=== PATIENT | female | born 1935 | race Caucasian/White ===

== ENCOUNTER 2016-12-08 12:35 | Observation (INO) ==
[~2016-12-08 12:35] MED LIST: DOCUSATE SODIUM 100 MG CAPSULE PO PRN; ONDANSETRON 4 MG/2 ML VIAL IV PRN
[2016-12-08] MEDS ORDERED: cloNIDine 0.1 MG TABLET PO PRN (12:38)
--- NOTE | 2016-12-08 13:22 | Family Practice History&Phys ---
Assessment and Plan (1) Malignant hypertensive urgency Status: Acute Assessment and plan: 12/08/2016: Put the patient in the hospital and will start her on half inch of Nitropaste. We will continue her current blood pressure medicines. 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 May need to consider Trilipix however some of this is associated with her high blood sugars Current Visit: Yes (5) Fatigue Status: Acute Assessment and plan: 12/08/2016: Hopefully she can be turned around with medication adjustments. I do plan on getting an echocardiogram Current Visit: Yes History of Present Illness Chief complaint: Fatigue, atypical chest pain History of present illness: Ms. Ennis is a 81 year old female Well-known to me, very pleasant who does not normally have many complaints, came to my clinic on 11/30/2016 with symptoms of decreased strength, feeling dizzy and having an unsteady gait. It was noted in the room, at that time, that although she was weak there were no cerebellar findings or any other neurologic findings at the time. However, her blood pressure was elevated approximately 200/100 and it had been as high as 250. We increased her bystolic from 5 mg to 10 mg and also her losartan from 50 mg to 100 mg. Today she came in clinic not feeling any better, (having to drive her car to the mailbox to get the mail) and on her blood pressure was still around 200/90. Was also complaining of some pain in her left side of her neck and going down to her elbow although she did not have any parvin chest pain. This was only equivocally reproducible and she does have a history of diabetes and there is a family history of heart disease. I feel like admission was warranted at this time she has not had a significant heart workup (states she has never had a treadmill or a catheterization done). Not had any associated nausea or vomiting nor has she had any diaphoresis. Plan is to admit her get cardiology consult, try to get blood pressure down and assess for possible atypical angina considering the patient's comorbidities. Of note lab done 1 week ago (12/02/2016) revealed: Total cholesterol 172, LDL 87, triglyceride 282, HDL 34, non-HDL 138. CMP was normal except for glucose 206. Her creatinine was 0.56 and electrolytes were normal. Hemoglobin A1c: 7.2, CBC was normal. I appreciate cardiology consult on this case - Constitutional Constitutional: Present: as per HPI - EENT Eyes: Absent: blurry vision Ears: Absent: decreased hearing Nose, mouth and throat: Absent: dysphagia, nasal congestion - Cardiovascular Cardiovascular: Present: radiating jaw, neck or arm pain (Concerned about atypical chest pain) - Respiratory Respiratory: Absent: cough, wheezing - Gastrointestinal Gastrointestinal: Absent: bloating - Genitourinary Genitourinary: Absent: flank pain - Musculoskeletal Musculoskeletal: Absent: arthralgias - Neurological Neurological: Absent: abnormal gait - Endocrine Endocrine: Absent: cold intolerance, heat intolerance Exam - Constitutional Exam: Generally very pleasant lady who does not have many complaints and who is very stoic. She is alert and oriented answers all questions appropriately and is psychologically and emotionally stable HEENT neck is supple trachea midline pupils are equal reactive to light. Cardiovascular rate is regular no gallop or rub 1/6 systolic ejection murmur Lungs are clear no rales rhonchi or wheezing Abdomen soft nondistended positive bowel sounds Extremities no clubbing cyanosis or edema, good dorsalis pedal pulses bilateral lower extremities Neurologically fully intact no lateralizing signs, cranial nerve deficits or motor or sensory deficits
--- NOTE | 2016-12-08 13:53 | EKG Report ---
Stationary ECG Study [facility] Test Date: 12/08/2016 1:52:46 PM Pat Name: LOYDA MYLES Department: Room: 279 Gender: F Medical Referral Coordinator: : 1935 Requested by: Shiv Espinosa Order Number: [id number] Reading MD: SUSHILA VICENTE Intervals [place] Rate: 74 P: 54 WV: 178 QRS: 34 QRSD: 85 T: 128 QT: 370 QTc: 397 Interpretive Statements SINUS RHYTHM MODERATE T-WAVE ABNORMALITY, CONSIDER LATERAL ISCHEMIA Electronically Signed On 12-08-16 17:27:39 CDT by SUSHILA VICENTE [email or web address]
[2016-12-08 14:04] LABS: Basophils # 0.1 10*3/uL (0.0-0.2); Basophils % 0.8 % (0.0-0.8); Eosinophils # 0.1 10*3/uL (0.0-0.87); Eosinophils % 1.6 % (0.00-10.9); Hematocrit 42.6 VOL% (35.7-47.0); Hemoglobin 14.6 GM/DL (12.0-16.0); Immature Granulocytes % 0.9 %; Immature Granulocytes Absolute 0.08 #; Lymphocytes # 2.8 10*3/uL (1.4-4.0); Lymphocytes % 31.7 % (21.3-54.2); Mean Corpuscular HGB Conc 34.3 GM/DL (32-36); Mean Corpuscular Hemoglobin 29 PG (27-34); Mean Platelet Volume 9.8 FL (9.6-12.0); Monocytes # 0.5 10*3/uL (0.11-0.8); Monocytes % 6.2 % (1.7-12.7); Neutrophils # 5.2 10*3/uL (1.4-7.4); Neutrophils % 58.8 % (38.7-73.9); Platelet Count 202 T/CUMM (130-400); Red Blood Count 5.07 MC/CUMM (3.8-5.5); White Blood Count 8.8 T/CUMM (4-12)
[2016-12-08 14:36] LABS: Troponin I Only < 0.015 NG/ML (0.00-0.045)
[2016-12-08] MEDS: ENOXAPARIN 40 MG/0.4 ML SYRINGE SUBCUT SCH (15:11)
[2016-12-08] MEDS: ASPIRIN EC 81 MG TABLET PO SCH (15:11)
[2016-12-08] MEDS: NITROGLYCERIN 2% OINT 1 INCH/GM PACK TOP SCH ×2 (15:12→21:55)
[2016-12-08] MEDS: SODIUM CHLORIDE 0.9% 1,000 ML IV SCH (15:12)
--- NOTE | 2016-12-08 15:37 | XRay Report ---
XR chest 2V Indication: Shortness of breath Comparison: 11 September 2011 Findings: The heart and mediastinum are normal in size and configuration. The pulmonary vascularity is normal in caliber. No lung infiltrates, effusions, pneumothorax or other abnormality is demonstrated. Impression: No acute cardiopulmonary findings. PROCEDURE INTERPRETED AT [facility] DEPARTMENT OF RADIOLOGY Final Report Signed by: Dr. Toño Benoit
[2016-12-08 15:44] LABS: Apearance,Urine Slightly Hazy (Clear); Bilirubin,Urine Negative (Negative); Blood, Urine Small mg/dL (Negative); Glucose,Urine (UA) Negative (Negative); Ketones,Urine Negative (Negative); Mucus,Urine Occasional /LPF (Occasional); Nitrite,Urine Negative (Negative); Protein,Urine 30 MG/DL; RBC,Urine 23 /HPF (0-4); Squamous Epithelial Cell,Urine Occasional /HPF (0-10); Urine Color Yellow (Yellow); Urine Specific Gravity 1.012 (1.001-1.035); Urine Urobilinogen < 2.0 EU/DL (0.2-1.0); WBC,Urine 146 /HPF (0-6)
--- NOTE | 2016-12-08 16:26 | Cardiology Consult Note ---
Assessment and Plan - Time spent with patient Time spent with patient: Greater than 30 minutes (1) Chest pain Status: Acute Assessment and plan: SEE PLAN OF CARE LISTED BELOW Current Visit: Yes (2) UTI (urinary tract infection) Status: Acute Assessment and plan: SEE PLAN OF CARE LISTED BELOW Current Visit: Yes (3) Malignant hypertensive urgency Status: Acute Assessment and plan: SEE PLAN OF CARE LISTED BELOW Current Visit: Yes (4) Diabetes mellitus Status: Chronic Assessment and plan: SEE PLAN OF CARE LISTED BELOW Current Visit: Yes (5) Hypertriglyceridemia without hypercholesterolemia Status: Chronic Assessment and plan: SEE PLAN OF CARE LISTED BELOW Current Visit: Yes (6) Fatigue Status: Acute Assessment and plan: SEE PLAN OF CARE LISTED BELOW Current Visit: Yes History of Present Illness - Data of Consult Patient: new to practice Consult date: 12/08/16 Requesting Physician: Shiv Pierce Primary care physician: Shiv Pierce - Consult Narrative Reason for consult: SOB, fatigue, weakness, chest discomfort 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 PIERCE Ms. Ennis, 81WF, has never been followed by cardiology. Risk factors include: Age, hypertension, dyslipidemia, diabetes, sedentary lifestyle. Patient was directly admitted from Dr. Shiv Pierce's clinic today with complaints of decreased strength, dizziness, unsteady gait chest discomfort. Patient has had uncontrolled hypertension of the last several weeks. She has been working with Dr. Pierce to better control her blood pressure as well as her blood glucose levels. These have both been very difficult to treat. Patient reports she has no energy, decreased stamina. She has become so weak and tired she now drives her car to the mailbox (approximately 100 feet) because of her significant shortness of breath and fatigue. She denies chest pain with exertion. She does acknowledge however, that she was awakened yesterday with chest pressure in the left upper chest area radiating to her left neck and shoulder. This lasted approximately 15 minutes. It was not associated with shortness of breath and it was relieved on its own. She is unable to write the discomfort on a scale of 1-10, currently chest pain-free. She can identify no aggravating factors nor any alleviating factors. Dr. Suarez is present. We will cycle her cardiac biomarkers, order echocardiogram and EKGs. Carotid ultrasound to evaluate her severe weakness, dizziness and near syncope. Continue to monitor her telemetry, adjust medications accordingly during hospital stay. It does appear she has a urinary tract infection and will start Cipro, await final cultures. TSH and BMP have been ordered. ASSESSMENT/PLAN: 1. UNCONTROLLED HYPERTENSION - will review medications and adjust as needed for better blood pressure control. 2. DIABETES - adjust medications accordingly during hospital stay 3. HYPERTRYGLYCERIDEMIA WITHOUT HYPERCHOLESTEROLEMIA - Dr. Pierce has discussed starting Trilipix. No need to repeat FLP in am. 4. FATIGUE - BAIRD labs, telemetry, echo. 5. CHEST PAIN -one episode of chest pain which radiated to her jaw. This was at rest and relieved by itself. Continue to cycle cardiac biomarkers, EKG. Add PPI. Low-dose aspirin, 1 dose of therapeutic Lovenox. 6. DIZZINESS - carotid US. Orthostatic vital signs. 7. UTI - start Cipro and await cultures. CC: Shiv Pierce DO - Home Medications and Allergies Home Medications: Home Medications Medication Instructions Recorded Confirmed Type Aspirin [Ecotrin] 81 mg PO BEDTIME 12/08/16 12/08/16 History Insulin Detemir [Levemir] 18 unit SUBCUT DAILY 12/08/16 12/08/16 History Losartan [Cozaar] 50 mg PO BEDTIME 12/08/16 12/08/16 History Nebivolol [Bystolic] 10 mg PO BEDTIME 12/08/16 12/08/16 History Sitagliptin Phos/Metformin HCl 1 tablet PO DAILY W/SUPPER 12/08/16 12/08/16 History [Janumet 50-1,000 mg Tablet] Allergies/Adverse Reactions: Allergies Allergy/AdvReac Type Severity Reaction Status Date / Time No Known Allergies Allergy Verified 12/08/16 13:53 Review of systems: REVIEW OF SYSTEMS: - Constitutional Constitutional: Present: Fatigue. Absent: syncope, anorexia, night sweats - EENT Eyes: Absent: blurry vision, loss of vision, diplopia Ears: Absent: decreased hearing, ear pain, ear discharge - Cardiovascular Cardiovascular: Present: chest pain at rest, radiating to neck and shoulder. Mild to moderate dyspnea on exertion. Denies edema or palpitations - Respiratory Respiratory: Present: HUSSEIN, denies cough. Absent: wheezing, hemoptysis, change in phlegm color - Gastrointestinal Gastrointestinal: Denies abdominal discomfort but does have feelings of urgency with defecation. Absent: hematemesis, hematochezia, melena, - Genitourinary Genitourinary: Incontinence, urinary frequency. Denies flank pain - Musculoskeletal Musculoskeletal: Present: back pain Absent: joint swelling, muscle cramps, muscle weakness - Neurological Neurological: Present: normal gait without frequent falls. Absent: dizziness, hemiparesis - Psychiatric Psychiatric: Absent: anxiety, depression, difficulty concentrating - Endocrine Endocrine: Present: fatigue. Absent: cold intolerance, heat intolerance, polyuria, polyphagia, polydipsia - Hematologic/Lymphatic Hematologic/Lymphatic: Present: easy bruising. Absent: easy bleeding -Integumentary Integumentary: Absent: lesions, rashes, skin breakdown Medical,Surgical,& Family Hx - Medical History Cardio: History of: Hypertension No history of: CAD, NV HEENT: History of: Eye Problem (glasses), Dental Problems (Upper) Endocrine: History of: Diabetes Mellitus (NIDDM) Respiratory: History of: Pneumonia - Surgical History Abdominal Surgeries: Surgical HX of: Colonoscopy Orthopedic Surgeries: Surgical HX of;: Orthopedic Surgery (bilateral knee replacements, R wrist carpal tunnel x2) - Family History Family History: Reports;: Family Heart Disease (dad), Family Hypertension (dad) , Family Stroke (grandfather) - Social History Smoking Status: Never smoker Have you smoked in the last 12 months: No Frequency of Alcohol Use: None Type of Drug Use: None Marital Status: Lives With:: Alone Functional capacity: independent ambulation Physical Examination General: [Appears well with no apparent distress.] [Pleasant and cooperative. ] [Appears comfortable.] HEENT: [PERRL, normocephalic, atraumatic. Mucous membranes moist. No jaundice noted. Conjunctiva moist and clear, sclerae anicteric] Neck: No JVD/HJR, no thyromegaly or lymphadenopathy noted. No carotid bruit appreciated Cardiac: [Regular rate and rhythm.] [No murmur rub or gallop.] Lungs: [Clear to auscultation without accessory muscle use to assist the respiratory pattern.] Not requiring oxygen Abdomen: Soft, bowel sounds normoactive. Nontender and nondistended. No abdominal bruit or thrill noted. No masses noted. Musculoskeletal: No fluid collection. Decreased range of motion is noted. Extremities: No clubbing, cyanosis noted. [ No edema noted.] Upper extremity pulses 2+. Lower extremity pulses 2+. Capillary refill less than 3 seconds. Skin: No unusual lesions or rashes. No skin breakdown appreciated. Neuro: Awake, alert and oriented 3. Moves all extremities well without hemiparesis or paralysis. No essential tremor is appreciated. Result/EKG - Labs CBC & BMP: 12/08/16 13:46 Lab Results: I have reviewed the past 24 hour labs Labs: Laboratory Results - last 24 hr 12/08/16 12/08/16 12/08/16 13:46 13:46 13:46 WBC 8.8 RBC 5.07 Hgb 14.6 Hct 42.6 MCV 84.0 L MCH 29 MCHC 34.3 RDW 14.0 Plt Count 202 MPV 9.8 Neut % (Auto) 58.8 Lymph % (Auto) 31.7 Lanier % (Auto) 6.2 Eos % (Auto) 1.6 Baso % (Auto) 0.8 Neut # (Auto) 5.2 Lymph # (Auto) 2.8 Lanier # (Auto) 0.5 Eos # (Auto) 0.1 Baso # (Auto) 0.1 Immature Gran % 0.9 Nucleated RBC % 0.0 Immature Gran # 0.08 Nucleated RBCs # 0.00 Magnesium 2.1 Total Creatine Kinase CK-MB (CK-2) Troponin I B-Natriuretic Peptide 49 Urine Color Urine Appearance Urine pH Ur Specific Cedar Urine Protein Urine Glucose (UA) Urine Ketones Urine Blood Urine Nitrate Urine Bilirubin Urine Urobilinogen Urine Leukocytes Urine RBC Urine WBC Urine WBC Clumps Ur Squamous Epith Cells Urine Mucus Ur Culture Indicated? 12/08/16 12/08/16 13:46 14:30 WBC RBC Hgb Hct MCV MCH MCHC RDW Plt Count MPV Neut % (Auto) Lymph % (Auto) Lanier % (Auto) Eos % (Auto) Baso % (Auto) Neut # (Auto) Lymph # (Auto) Lanier # (Auto) Eos # (Auto) Baso # (Auto) Immature Gran % Nucleated RBC % Immature Gran # Nucleated RBCs # Magnesium Total Creatine Kinase 24 L CK-MB (CK-2) < 1.0 Troponin I < 0.015 B-Natriuretic Peptide Urine Color Yellow Urine Appearance Slightly hazy Urine pH 7.0 Ur Specific Cedar 1.012 Urine Protein 30 Urine Glucose (UA) Negative Urine Ketones Negative Urine Blood Small Urine Nitrate Negative Urine Bilirubin Negative Urine Urobilinogen < 2.0 H Urine Leukocytes Large H Urine RBC 23 Urine WBC 146 Urine WBC Clumps Occasional Ur Squamous Epith Cells Occasional Urine Mucus Occasional Ur Culture Indicated? Results to follow - Diagnostic Findings Procedure: Chest x-ray: report reviewed by me - EKG EKG results: interpreted by me EKG shows: sinus rhythm
[2016-12-08 17:39] LABS: Calcium 9.2 MG/DL (8.5-10.1); Magnesium 2.1 MG/DL (1.8-2.4); Osmolality,Calculated 274.8 MOS/KG (273-304); Potassium 3.9 MMOL/L (3.5-5.1)
[2016-12-08 17:44] LABS: Troponin I Only < 0.015 NG/ML (0.00-0.045)
[2016-12-08 17:50] LABS: PT Patient Result 10.9 SECS
[2016-12-08 18:16] LABS: Free T4 (Free Thyroxine) 1.2 NG/DL (0.76-1.46); Thyroid Stimulating Hormone 1.68 uIU/ml (0.358-3.74)
--- NOTE | 2016-12-08 18:49 | Ultrasound Report ---
Carotid artery ultrasound Indication: Stroke Comparison: None available Color Doppler flow and spectral analysis was performed. Findings: Small amount of atherosclerotic plaque is present in both proximal internal carotid arteries. The peak systolic velocity in the right is 73 cm/s . Ratio of flow is 1.0. The peak systolic velocity in the left is 83 cm/s . Ratio of flow is 1.6 Bilateral antegrade vertebral flow is seen. Impression: No evidence of hemodynamically significant stenosis is seen, 0-49% estimated stenosis. Consensus conference on the carotid ultrasound criteria used. Ultrasound images were captured and stored. PROCEDURE INTERPRETED AT [facility] DEPARTMENT OF RADIOLOGY Final Report Signed by: Dr. Toño Benoit
[2016-12-08 20:02] LABS: Troponin I Only < 0.015 NG/ML (0.00-0.045)
[2016-12-08] MEDS: CIPROFLOXACIN 500 MG TABLET PO SCH (21:54)
[2016-12-08] MEDS: ACETAMINOPHEN 325 MG TABLET PO PRN (21:54)
[2016-12-08] MEDS: OMEGA 3 ACID ETHYL ESTERS 1 GM CAPSULE PO SCH (21:55)
[2016-12-09] MEDS: SODIUM CHLORIDE 0.9% 1,000 ML IV SCH ×2 (05:07→17:56)
[2016-12-09 05:43] LABS: Basophils % 0.7 % (0.0-0.8); Eosinophils # 0.2 10*3/uL (0.0-0.87); Eosinophils % 3.4 % (0.00-10.9); Hematocrit 37.9 VOL% (35.7-47.0); Hemoglobin 12.7 GM/DL (12.0-16.0); Immature Granulocytes % 0.9 %; Immature Granulocytes Absolute 0.05 #; Lymphocytes # 2.4 10*3/uL (1.4-4.0); Lymphocytes % 41.6 % (21.3-54.2); Mean Corpuscular HGB Conc 33.5 GM/DL (32-36); Mean Corpuscular Hemoglobin 28 PG (27-34); Mean Platelet Volume 10.2 FL (9.6-12.0); Monocytes # 0.4 10*3/uL (0.11-0.8); Neutrophils # 2.7 10*3/uL (1.4-7.4); Neutrophils % 46.4 % (38.7-73.9); Platelet Count 161 T/CUMM (130-400); Red Blood Count 4.51 MC/CUMM (3.8-5.5); Red Cell Distribution Width 14.2 % (9.3-17.3); White Blood Count 5.8 T/CUMM (4-12)
--- NOTE | 2016-12-09 05:56 | ECHO Report ---
Saira Ennis Exam Date: 12/08/2016 14:17 Referring Physician: Technologist: drea Ojeda ARDMS, RVT Age: 81 Ht (in): 65 Wt (lb): 170 Gender: F Exam Location: [facility] Echo Indications: Other fatigue, Malignant hypertensive urgency, Diabetes mellitus, Hypertrigliceridemia BP: / HR: 79 Rhythm: Sinus Technical Quality: Fair IMPRESSIONS Normal left ventricular cavity size. Mild left ventricular hypertrophy. Left ventricular ejection fraction is estimated at 65 %. The right ventricle is normal in size and function. Mild atrial enlargement in apical view (elongated RA). Mild atrial enlargement in apical view (elongated LA). Morphologically normal mitral valve. Mild mitral valve regurgitation. Morphologically normal aortic valve without significant sclerosis or stenosis. There is no aortic regurgitation. Morphologically normal tricuspid valve. Trace to mild tricuspid valve regurgitation. Tricuspid regurgitation velocities suggest a PAP of 43 mmHg. Morphologically normal pulmonic valve. Mild pulmonary valve regurgitation. Normal pericardium without effusion. Normal ascending aorta dimension. MEASUREMENTS (Male / Female) Normal Values 2D ECHO LV Diastolic Diameter PLAX 5.9 cm 4.2 - 5.9 / 3.9 - 5.3 cm LV Systolic Diameter PLAX 3.4 cm LV Fractional Shortening PLAX 43.4 % IVS Diastolic Thickness 1.1 cm 0.6 - 1.0 / 0.6 - 0.9 cm LVPW Diastolic Thickness 1.1 cm 0.6 - 1.0 / 0.6 - 0.9 cm RV Internal Dim ED PLAX 3.2 cm Aortic Root Diameter 3.4 cm LA Systolic Diameter LX 4.1 cm 3.0 - 4.0 / 2.7 - 3.8 cm DOPPLER TR Peak Velocity 286.0 cm/s TR Peak Gradient 32.7 mmHg FINDINGS Left Ventricle Normal left ventricular cavity size. Mild left ventricular hypertrophy. Left ventricular ejection fraction is estimated at 65 %. Right Ventricle The right ventricle is normal in size and function. Right Atrium Mild atrial enlargement in apical view (elongated RA). Left Atrium Mild atrial enlargement in apical view (elongated LA). Mitral Valve Morphologically normal mitral valve. Mild mitral valve regurgitation. Aortic Valve Morphologically normal aortic valve without significant sclerosis or stenosis. There is no aortic regurgitation. Tricuspid Valve Morphologically normal tricuspid valve. Trace to mild tricuspid valve regurgitation. Tricuspid regurgitation velocities suggest a PAP of 43 mmHg. Pulmonic Valve Morphologically normal pulmonic valve. Mild pulmonary valve regurgitation. Pericardium Normal pericardium without effusion. Aorta Normal ascending aorta dimension. Steve Suarez MD (Electronically Signed) Final Date: 09 December 2016 05:55
[2016-12-09 06:19] LABS: Calcium 9.1 MG/DL (8.5-10.1); Magnesium 2.1 MG/DL (1.8-2.4); Osmolality,Calculated 280.7 MOS/KG (273-304); Potassium 3.9 MMOL/L (3.5-5.1)
[2016-12-09 06:25] LABS: Risk Ratio 7.38; VLDL CHOLESTEROL 100.2 MG/DL
--- NOTE | 2016-12-09 07:47 | EKG Report ---
Stationary ECG Study [facility] Test Date: 12/09/2016 7:50:12 AM Pat Name: LOYDA MYLES Department: Room: 279 Gender: F Anesthesiology Fellow: VAN : 1935 Requested by: Trudy Figueroa Order Number: [id number] [place] MD: SRIKANTH LYONS Intervals [place] Rate: 65 P: 52 [place]: 209 QRS: 37 QRSD: 89 T: 111 QT: 410 QTc: 421 Interpretive Statements SINUS RHYTHM NONSPECIFIC T-WAVE ABNORMALITY Electronically Signed On 12-10-16 06:15:55 CDT by SRIKANTH LYONS [email or web address]
--- NOTE | 2016-12-09 09:10 | Cardiology Progress Note ---
Assessment and Plan (1) Chest pain Status: Acute Assessment and plan: Her chest pain is concerning for angina and she does have risk factors. At her age am going to start her on medications and then have her discharged to see me back in several weeks for screening. I am going to arrange that. She can be discharged at her convenience. Thank you for this consultation. Current Visit: Yes (2) Fatigue Status: Acute Current Visit: Yes (3) Diabetes mellitus Status: Chronic Current Visit: Yes Cardiology - PN: Subj Interval history: Ms. Burgess is stable and doing well. We had a long discussion related to evaluation of her symptoms. She clearly could have underlying significant anginal symptoms and I think the best approach given the fact that her LV function is normal is for us to adjust her meds start her on antianginals and then reevaluate her as an outpatient in the next several weeks to a month. I did explain to her that if she has recurring anginal symptoms that she needs to seek medical attention and I will give her sublingual nitroglycerin to keep with her. She is agreeable to this approach and I think is reasonable to discharge her trigger discretion. I will see her as an outpatient. Exam (Progress Note) - Constitutional Vitals: Period Temp Pulse Resp BP Sys/Weiner Pulse Ox Last 24 Hr 96.2 F-98.5 F 62-80 14-18 123-212/65-95 94-99 Exam: General:no acute distress. alert and oriented, mood and affect are normal HEENT: no new lesions, sclerae are clear, mouth and pharynx benign Neck: supple, trachea midline, no JVD noted Lungs: no rales ronchi or wheeze is noted. pt comfortable without accesory muscle use to assist with breathing CV: RRR no murmur rub or gallop is noted. Abd: soft and nontender, BSNA, no masses. Ext: no cyanosis, clubbing or edema Neuro: grossly intact without focal neurologic deficit. Result/EKG - Labs CBC & BMP: 12/09/16 04:46 12/09/16 04:46 Labs: Laboratory Results - last 24 hr 12/08/16 12/08/16 12/08/16 13:46 13:46 13:46 WBC 8.8 RBC 5.07 Hgb 14.6 Hct 42.6 MCV 84.0 L MCH 29 MCHC 34.3 RDW 14.0 Plt Count 202 MPV 9.8 Neut % (Auto) 58.8 Lymph % (Auto) 31.7 [place] % (Auto) 6.2 Eos % (Auto) 1.6 Baso % (Auto) 0.8 Neut # (Auto) 5.2 Lymph # (Auto) 2.8 [place] # (Auto) 0.5 Eos # (Auto) 0.1 Baso # (Auto) 0.1 Immature Gran % 0.9 Nucleated RBC % 0.0 Immature Gran # 0.08 Nucleated RBCs # 0.00 INR PT Patient/Control Mix Sodium Potassium Chloride Carbon Dioxide Anion Gap BUN Creatinine GFR Calculation BUN/Creatinine Ratio Glucose POC Glucose Calculated Osmolality Calcium Magnesium 2.1 Total Creatine Kinase CK-MB (CK-2) Troponin I B-Natriuretic Peptide 49 Triglycerides Cholesterol LDL Cholesterol VLDL Cholesterol HDL Cholesterol Heart Disease Risk Ratio Free T4 TSH 3rd Generation Urine Color Urine Appearance Urine pH Ur Specific [place] Urine Protein Urine Glucose (UA) Urine Ketones Urine Blood Urine Nitrate Urine Bilirubin Urine Urobilinogen Urine Leukocytes Urine RBC Urine WBC Urine WBC Clumps Ur Squamous Epith Cells Urine Mucus Ur Culture Indicated? 12/08/16 12/08/16 12/08/16 13:46 14:30 17:03 WBC RBC Hgb Hct MCV MCH MCHC RDW Plt Count MPV Neut % (Auto) Lymph % (Auto) [place] % (Auto) Eos % (Auto) Baso % (Auto) Neut # (Auto) Lymph # (Auto) [place] # (Auto) Eos # (Auto) Baso # (Auto) Immature Gran % Nucleated RBC % Immature Gran # Nucleated RBCs # INR PT Patient/Control Mix Sodium Potassium Chloride Carbon Dioxide Anion Gap BUN Creatinine GFR Calculation BUN/Creatinine Ratio Glucose POC Glucose 134 H Calculated Osmolality Calcium Magnesium Total Creatine Kinase 24 L CK-MB (CK-2) < 1.0 Troponin I < 0.015 B-Natriuretic Peptide Triglycerides Cholesterol LDL Cholesterol VLDL Cholesterol HDL Cholesterol Heart Disease Risk Ratio Free T4 TSH 3rd Generation Urine Color Yellow Urine Appearance Slightly hazy Urine pH 7.0 Ur Specific [place] 1.012 Urine Protein 30 Urine Glucose (UA) Negative Urine Ketones Negative Urine Blood Small Urine Nitrate Negative Urine Bilirubin Negative Urine Urobilinogen < 2.0 H Urine Leukocytes Large H Urine RBC 23 Urine WBC 146 Urine WBC Clumps Occasional Ur Squamous Epith Cells Occasional Urine Mucus Occasional Ur Culture Indicated? Results to follow 12/08/16 12/08/16 12/08/16 17:09 17:09 17:09 WBC RBC Hgb Hct MCV MCH MCHC RDW Plt Count MPV Neut % (Auto) Lymph % (Auto) [place] % (Auto) Eos % (Auto) Baso % (Auto) Neut # (Auto) Lymph # (Auto) [place] # (Auto) Eos # (Auto) Baso # (Auto) Immature Gran % Nucleated RBC % Immature Gran # Nucleated RBCs # INR 1.0 PT Patient/Control Mix 10.9 Sodium 137 Potassium 3.9 Chloride 102 Carbon Dioxide 26 Anion Gap 12.9 BUN 10 Creatinine 0.60 GFR Calculation 91 BUN/Creatinine Ratio 16.00 Glucose 145 H POC Glucose Calculated Osmolality 274.8 Calcium 9.2 Magnesium 2.1 Total Creatine Kinase 35 D CK-MB (CK-2) 1.2 Troponin I < 0.015 B-Natriuretic Peptide Triglycerides Cholesterol LDL Cholesterol VLDL Cholesterol HDL Cholesterol Heart Disease Risk Ratio Free T4 TSH 3rd Generation Urine Color Urine Appearance Urine pH Ur Specific [place] Urine Protein Urine Glucose (UA) Urine Ketones Urine Blood Urine Nitrate Urine Bilirubin Urine Urobilinogen Urine Leukocytes Urine RBC Urine WBC Urine WBC Clumps Ur Squamous Epith Cells Urine Mucus Ur Culture Indicated? 12/08/16 12/08/16 12/08/16 17:09 19:18 20:36 WBC RBC Hgb Hct MCV MCH MCHC RDW Plt Count MPV Neut % (Auto) Lymph % (Auto) [place] % (Auto) Eos % (Auto) Baso % (Auto) Neut # (Auto) Lymph # (Auto) [place] # (Auto) Eos # (Auto) Baso # (Auto) Immature Gran % Nucleated RBC % Immature Gran # Nucleated RBCs # INR PT Patient/Control Mix Sodium Potassium Chloride Carbon Dioxide Anion Gap BUN Creatinine GFR Calculation BUN/Creatinine Ratio Glucose POC Glucose 197 H Calculated Osmolality Calcium Magnesium Total Creatine Kinase 46 D CK-MB (CK-2) 1.6 Troponin I < 0.015 B-Natriuretic Peptide Triglycerides Cholesterol LDL Cholesterol VLDL Cholesterol HDL Cholesterol Heart Disease Risk Ratio Free T4 1.20 TSH 3rd Generation 1.680 Urine Color Urine Appearance Urine pH Ur Specific [place] Urine Protein Urine Glucose (UA) Urine Ketones Urine Blood Urine Nitrate Urine Bilirubin Urine Urobilinogen Urine Leukocytes Urine RBC Urine WBC Urine WBC Clumps Ur Squamous Epith Cells Urine Mucus Ur Culture Indicated? 12/09/16 12/09/16 12/09/16 04:46 04:46 04:46 WBC 5.8 D RBC 4.51 Hgb 12.7 Hct 37.9 MCV 84.0 L MCH 28 MCHC 33.5 RDW 14.2 Plt Count 161 D MPV 10.2 Neut % (Auto) 46.4 Lymph % (Auto) 41.6 [place] % (Auto) 7.0 Eos % (Auto) 3.4 Baso % (Auto) 0.7 Neut # (Auto) 2.7 Lymph # (Auto) 2.4 [place] # (Auto) 0.4 Eos # (Auto) 0.2 Baso # (Auto) 0.0 Immature Gran % 0.9 Nucleated RBC % 0.0 Immature Gran # 0.05 Nucleated RBCs # 0.00 INR PT Patient/Control Mix Sodium 138 Potassium 3.9 Chloride 102 Carbon Dioxide 27 Anion Gap 12.9 BUN 14 Creatinine 0.50 L GFR Calculation 96 BUN/Creatinine Ratio 28.00 H Glucose 185 H POC Glucose Calculated Osmolality 280.7 Calcium 9.1 Magnesium 2.1 Total Creatine Kinase CK-MB (CK-2) Troponin I B-Natriuretic Peptide Triglycerides 501 H Cholesterol 192 LDL Cholesterol 94.0 VLDL Cholesterol 100.2 HDL Cholesterol 26 L Heart Disease Risk Ratio 7.38 Free T4 TSH 3rd Generation Urine Color Urine Appearance Urine pH Ur Specific [place] Urine Protein Urine Glucose (UA) Urine Ketones Urine Blood Urine Nitrate Urine Bilirubin Urine Urobilinogen Urine Leukocytes Urine RBC Urine WBC Urine WBC Clumps Ur Squamous Epith Cells Urine Mucus Ur Culture Indicated? 12/09/16 07:41 WBC RBC Hgb Hct MCV MCH MCHC RDW Plt Count MPV Neut % (Auto) Lymph % (Auto) [place] % (Auto) Eos % (Auto) Baso % (Auto) Neut # (Auto) Lymph # (Auto) [place] # (Auto) Eos # (Auto) Baso # (Auto) Immature Gran % Nucleated RBC % Immature Gran # Nucleated RBCs # INR PT Patient/Control Mix Sodium Potassium Chloride Carbon Dioxide Anion Gap BUN Creatinine GFR Calculation BUN/Creatinine Ratio Glucose POC Glucose 206 H Calculated Osmolality Calcium Magnesium Total Creatine Kinase CK-MB (CK-2) Troponin I B-Natriuretic Peptide Triglycerides Cholesterol LDL Cholesterol VLDL Cholesterol HDL Cholesterol Heart Disease Risk Ratio Free T4 TSH 3rd Generation Urine Color Urine Appearance Urine pH Ur Specific [place] Urine Protein Urine Glucose (UA) Urine Ketones Urine Blood Urine Nitrate Urine Bilirubin Urine Urobilinogen Urine Leukocytes Urine RBC Urine WBC Urine WBC Clumps Ur Squamous Epith Cells Urine Mucus Ur Culture Indicated?
[2016-12-09] MEDS: NITROGLYCERIN 2% OINT 1 INCH/GM PACK TOP SCH (09:49)
[2016-12-09] MEDS: OMEGA 3 ACID ETHYL ESTERS 1 GM CAPSULE PO SCH ×2 (10:16→21:19)
[2016-12-09] MEDS: amLODIPine 5 MG TABLET PO SCH (10:16)
[2016-12-09] MEDS: PANTOPRAZOLE 40 MG TABLET PO SCH (10:16)
[2016-12-09] MEDS: CIPROFLOXACIN 500 MG TABLET PO SCH ×2 (10:17→21:19)
[2016-12-09] MEDS: ASPIRIN EC 81 MG TABLET PO SCH ×2 (10:17→21:19)
[2016-12-09] MEDS: ENOXAPARIN 40 MG/0.4 ML SYRINGE SUBCUT SCH (14:31)
--- NOTE | 2016-12-09 14:47 | Family Practice Progress Note ---
Family Practice - PN: Subj Interval history: Patient states that she feels better but still feels weak. Her blood pressures are much better controlled. Dr. Suarez has evaluated patient and feels that she likely has angina. He has adjusted her medications and plans to follow her on an outpatient basis. Hopefully her symptoms can be medically controlled. Patient has not been up out of bed and in view of her weakness would like to have her up and ambulate prior to discharge. We will also restart her home glucose medications. No new problems identified. We will plan to discharge in early a.m. if stable Exam (Progress Note) - Constitutional Vitals: Period Temp Pulse Resp BP Sys/Weiner Pulse Ox Last 24 Hr 96.2 F-98.5 F 62-80 14-18 123-212/65-95 94-99 Results - Labs CBC & BMP: 12/09/16 04:46 12/09/16 04:46
[2016-12-09] MEDS ORDERED: metFORMIN 500 MG TABLET PO SCH (17:00)
[2016-12-09] MEDS: sitaGLIPtin 25 MG TABLET PO SCH (17:36)
[2016-12-09] MEDS: INSULIN GLARGINE 100 UNIT/ML SUBCUT SCH (17:36)
[2016-12-09] MEDS: ACETAMINOPHEN 325 MG TABLET PO PRN (17:45)
[2016-12-09] MEDS: LOSARTAN 50 MG TABLET PO SCH (21:19)
[2016-12-10 04:50] LABS: Basophils % 0.6 % (0.0-0.8); Eosinophils # 0.2 10*3/uL (0.0-0.87); Eosinophils % 3.1 % (0.00-10.9); Hematocrit 38.2 VOL% (35.7-47.0); Hemoglobin 12.9 GM/DL (12.0-16.0); Immature Granulocytes % 0.6 %; Immature Granulocytes Absolute 0.04 #; Lymphocytes # 2.7 10*3/uL (1.4-4.0); Lymphocytes % 43.3 % (21.3-54.2); Mean Corpuscular HGB Conc 33.8 GM/DL (32-36); Mean Corpuscular Hemoglobin 28 PG (27-34); Mean Corpuscular Volume 83.8 FL (87-102); Mean Platelet Volume 10.5 FL (9.6-12.0); Monocytes # 0.4 10*3/uL (0.11-0.8); Monocytes % 7.1 % (1.7-12.7); Neutrophils # 2.8 10*3/uL (1.4-7.4); Neutrophils % 45.3 % (38.7-73.9); Platelet Count 144 T/CUMM (130-400); Red Blood Count 4.56 MC/CUMM (3.8-5.5); Red Cell Distribution Width 13.9 % (9.3-17.3); White Blood Count 6.2 T/CUMM (4-12)
[2016-12-10 05:18] LABS: Calcium 8.5 MG/DL (8.5-10.1); Magnesium 2.1 MG/DL (1.8-2.4); Osmolality,Calculated 282.5 MOS/KG (273-304)
[2016-12-10] MEDS: SODIUM CHLORIDE 0.9% 1,000 ML IV SCH ×2 (07:45→18:10)
[2016-12-10] MEDS: OMEGA 3 ACID ETHYL ESTERS 1 GM CAPSULE PO SCH ×2 (08:46→21:23)
[2016-12-10] MEDS: ISOSORBIDE MONONITRATE 30 MG TABLET PO SCH (08:46)
[2016-12-10] MEDS: amLODIPine 5 MG TABLET PO SCH (08:46)
[2016-12-10] MEDS: ASPIRIN EC 81 MG TABLET PO SCH ×2 (08:47→21:22)
[2016-12-10] MEDS: CIPROFLOXACIN 500 MG TABLET PO SCH ×2 (08:47→21:22)
[2016-12-10] MEDS: PANTOPRAZOLE 40 MG TABLET PO SCH (08:47)
[2016-12-10] MEDS: INSULIN GLARGINE 100 UNIT/ML SUBCUT SCH (08:49)
[2016-12-10] MEDS: ACETAMINOPHEN 325 MG TABLET PO PRN (09:03)
--- NOTE | 2016-12-10 09:47 | Cardiology Progress Note ---
Assessment and Plan (1) Chest pain Status: Acute Assessment and plan: Her chest pain is concerning for angina and after extensive review with the patient and with her family I think the right approach will be to change our plans and proceed with cardiac catheterization. She is agreeable to having this done. I will set this up. Current Visit: Yes (2) Fatigue Status: Acute Current Visit: Yes (3) Diabetes mellitus Status: Chronic Current Visit: Yes Cardiology - PN: Subj Interval history: This is an 81-year-old lady who presents with exercise intolerance. Her symptoms are suspicious for exertional angina. We had initially spoken about trying to get her on medical therapy and then cath for medical failure. We had a long discussion today about the family situation and the fact that her family members are here and that it probably from a logistical standpoint would be best to go ahead and proceed with cardiac catheterization while her family members are here and get all the information we need to make appropriate decisions about her management. I did discuss with her the risks benefits and alternatives of cardiac catheterization. She appears to understand these and is agreeable to proceeding. She has had no anginal symptoms although she has been inactive and is going to increase her activity through the day today. Exam (Progress Note) - Constitutional Vitals: Period Temp Pulse Resp BP Sys/Weiner Pulse Ox Last 24 Hr 96.9 F-98.9 F 65-82 12-18 137-189/71-93 97-99 Exam: General:no acute distress. alert and oriented, mood and affect are normal HEENT: no new lesions, sclerae are clear, mouth and pharynx benign Neck: supple, trachea midline, no JVD noted Lungs: no rales ronchi or wheeze is noted. pt comfortable without accesory muscle use to assist with breathing CV: RRR no murmur rub or gallop is noted. Abd: soft and nontender, BSNA, no masses. Ext: no cyanosis, clubbing or edema Neuro: grossly intact without focal neurologic deficit. Result/EKG - Labs CBC & BMP: 12/10/16 03:58 12/10/16 03:58 Labs: Laboratory Results - last 24 hr 12/09/16 12/09/16 12/09/16 11:56 17:02 21:09 WBC RBC Hgb Hct MCV MCH MCHC RDW Plt Count MPV Neut % (Auto) Lymph % (Auto) [place] % (Auto) Eos % (Auto) Baso % (Auto) Neut # (Auto) Lymph # (Auto) [place] # (Auto) Eos # (Auto) Baso # (Auto) Immature Gran % Nucleated RBC % Immature Gran # Nucleated RBCs # Sodium Potassium Chloride Carbon Dioxide Anion Gap BUN Creatinine GFR Calculation BUN/Creatinine Ratio Glucose POC Glucose 196 H 199 H 203 H Calculated Osmolality Calcium Magnesium 12/10/16 12/10/16 12/10/16 03:58 03:58 08:31 WBC 6.2 RBC 4.56 Hgb 12.9 Hct 38.2 MCV 83.8 L MCH 28 MCHC 33.8 RDW 13.9 Plt Count 144 MPV 10.5 Neut % (Auto) 45.3 Lymph % (Auto) 43.3 [place] % (Auto) 7.1 Eos % (Auto) 3.1 Baso % (Auto) 0.6 Neut # (Auto) 2.8 Lymph # (Auto) 2.7 [place] # (Auto) 0.4 Eos # (Auto) 0.2 Baso # (Auto) 0.0 Immature Gran % 0.6 Nucleated RBC % 0.0 Immature Gran # 0.04 Nucleated RBCs # 0.00 Sodium 139 Potassium 4.0 Chloride 105 Carbon Dioxide 24 Anion Gap 14.0 BUN 14 Creatinine 0.60 GFR Calculation 91 BUN/Creatinine Ratio 23.00 H Glucose 191 H POC Glucose 214 H Calculated Osmolality 282.5 Calcium 8.5 Magnesium 2.1 Specialty Discharge - Follow Up or Referrals Follow up with: Steve Suarez MD [Physician] - 2 Weeks
[2016-12-10] MEDS ORDERED: MAGNESIUM SULF RIDER 2 GM in PREMIX 1 EACH IV PRN (09:48)
[2016-12-10] MEDS ORDERED: POTASSIUM CHLORIDE RIDER 10 MEQ in PREMIX 1 EACH IV PRN (09:48)
--- NOTE | 2016-12-10 12:43 | Family Practice Progress Note ---
Family Practice - PN: Subj Interval history: Patient states that she feels better but still feels weak. Her blood pressures are much better controlled. Dr. Suarez has evaluated patient and feels that she likely has angina. He has adjusted her medications and plans to follow her on an outpatient basis. Hopefully her symptoms can be medically controlled. Patient has not been up out of bed and in view of her weakness would like to have her up and ambulate prior to discharge. We will also restart her home glucose medications. No new problems identified. We will plan to discharge in early a.m. if stable 12/10/16 patient is stable this a.m.. Have discussed case with Dr. Suarez and he has decided to proceed with cardiac catheterization in a.m. I agree with this decision. Patient admission to Dr. Suarez about having chronic leg and foot pain. Apparently he has had a severe burning in her feet for quite some time. Patient states that she has chronic pain in her legs. Pain is worse with ambulation but also occurs at rest. Mainly in the lower extremities. It sounds more like neuropathy but she would probably benefit from BETHANY studies. We will start her on low-dose Neurontin and Dr. Montoya can adjust as indicated. We will otherwise continue present evaluation and treatment Exam (Progress Note) - Constitutional Vitals: Period Temp Pulse Resp BP Sys/Weiner Pulse Ox Last 24 Hr 96.9 F-98.9 F 65-82 12-18 137-189/71-93 97-99 Results - Labs CBC & BMP: 12/10/16 03:58 12/10/16 03:58 Specialty Discharge - Follow Up or Referrals Follow up with: Steve Suarez MD [Physician] - 2 Weeks
[2016-12-10] MEDS: GABAPENTIN 100 MG CAPSULE PO SCH ×2 (13:04→21:22)
[2016-12-10] MEDS: ENOXAPARIN 40 MG/0.4 ML SYRINGE SUBCUT SCH (13:04)
[2016-12-10] MEDS: sitaGLIPtin 25 MG TABLET PO SCH (17:34)
[2016-12-10] MEDS: LOSARTAN 50 MG TABLET PO SCH (21:22)
[2016-12-11 05:58] LABS: Basophils % 0.5 % (0.0-0.8); Eosinophils # 0.2 10*3/uL (0.0-0.87); Eosinophils % 2.7 % (0.00-10.9); Hemoglobin 12.4 GM/DL (12.0-16.0); Immature Granulocytes % 0.5 %; Immature Granulocytes Absolute 0.03 #; Lymphocytes # 1.8 10*3/uL (1.4-4.0); Lymphocytes % 30.3 % (21.3-54.2); Mean Corpuscular HGB Conc 34.4 GM/DL (32-36); Mean Corpuscular Hemoglobin 29 PG (27-34); Mean Corpuscular Volume 83.1 FL (87-102); Mean Platelet Volume 10.2 FL (9.6-12.0); Monocytes # 0.5 10*3/uL (0.11-0.8); Monocytes % 8.1 % (1.7-12.7); Neutrophils # 3.5 10*3/uL (1.4-7.4); Neutrophils % 57.9 % (38.7-73.9); Platelet Count 153 T/CUMM (130-400); Red Blood Count 4.33 MC/CUMM (3.8-5.5); Red Cell Distribution Width 13.9 % (9.3-17.3)
[2016-12-11 06:33] LABS: Calcium 8.5 MG/DL (8.5-10.1); Magnesium 2.4 MG/DL (1.8-2.4); Osmolality,Calculated 278.5 MOS/KG (273-304); Potassium 3.9 MMOL/L (3.5-5.1)
--- NOTE | 2016-12-11 08:40 | Family Practice Progress Note ---
Family Practice - PN: Subj Interval history: 12/11/2016: Patient seen this morning. Is scheduled for a catheterization. She is in good spirits in no acute distress. No chest pain shortness of breath or abdominal pain at present. Will plan DC tomorrow if everything is negative. Exam (Progress Note) - Constitutional Vitals: Period Temp Pulse Resp BP Sys/Weiner Pulse Ox Last 24 Hr 96.5 F-98.4 F 66-80 16-20 147-161/71-81 98-100 Exam: Generally She is alert and oriented answers all questions appropriately and is psychologically and emotionally stable HEENT neck is supple trachea midline pupils are equal reactive to light. Cardiovascular rate is regular no gallop or rub 1/6 systolic ejection murmur Lungs are clear no rales rhonchi or wheezing Abdomen soft nondistended positive bowel sounds Extremities no clubbing cyanosis or edema, good dorsalis pedal pulses bilateral lower extremities Neurologically fully intact no lateralizing signs, cranial nerve deficits or motor or sensory deficits Results - Labs CBC & BMP: 12/11/16 05:06 12/11/16 05:06 Assessment and Plan (1) Malignant hypertensive urgency Status: Acute Assessment and plan: 12/08/2016: Put the patient in the hospital and will start her on half inch of Nitropaste. We will continue her current blood pressure medicines. 12/11/2016: Hypertension well and under control at this time Current Visit: Yes (2) Angina at rest Status: Acute Assessment and plan: 12/08/2016: Possibly having atypical angina and we will give her Nitropaste and start on very low-dose Lovenox at this time will get cardiac consult and appreciate cardiology consult 12/11/2016: Patient is scheduled for a cath today Current Visit: Yes (3) Diabetes mellitus Status: Chronic Assessment and plan: 12/08/2016: Monitor glucose carefully and continue current medications, if necessary start a sliding scale 12/11/2016: Blood sugars are tolerable limits, around 150 160 Current Visit: Yes (4) Hypertriglyceridemia without hypercholesterolemia Status: Chronic Assessment and plan: 12/08/2016: Recent cholesterol studies were normal except for the triglycerides. May need to consider Trilipix however some of this is associated with her high blood sugars Current Visit: Yes (5) Fatigue Status: Acute Assessment and plan: 12/08/2016: Hopefully she can be turned around with medication adjustments. I do plan on getting an echocardiogram Current Visit: Yes Specialty Discharge - Follow Up or Referrals Follow up with: Steve Suarez MD [Physician] - 2 Weeks
[2016-12-11] MEDS: GABAPENTIN 100 MG CAPSULE PO SCH (09:40)
[2016-12-11] MEDS: CIPROFLOXACIN 500 MG TABLET PO SCH (09:40)
[2016-12-11] MEDS: OMEGA 3 ACID ETHYL ESTERS 1 GM CAPSULE PO SCH (09:40)
[2016-12-11] MEDS: PANTOPRAZOLE 40 MG TABLET PO SCH (09:41)
[2016-12-11] MEDS: ISOSORBIDE MONONITRATE 30 MG TABLET PO SCH (09:41)
[2016-12-11] MEDS: amLODIPine 5 MG TABLET PO SCH (09:41)
[2016-12-11] MEDS: SODIUM CHLORIDE 0.9% 1,000 ML IV SCH (09:44)
[2016-12-11] MEDS: INSULIN GLARGINE 100 UNIT/ML SUBCUT SCH (10:51)
[2016-12-11] MEDS ORDERED: LIDOCAINE 1%/EPI INJ 20 ML VIAL ONE (12:47)
[2016-12-11] MEDS ORDERED: HEPARIN/NACL 0.9% 2 UNITS/ML 1,000 ML IV ONE (12:47)
[2016-12-11] MEDS ORDERED: diphenhydrAMINE CAP 50 MG CAPSULE ONE (13:00)
[2016-12-11] MEDS: ENOXAPARIN 40 MG/0.4 ML SYRINGE SUBCUT SCH (13:00)
[2016-12-11] MEDS ORDERED: DIAZEPAM 5 MG TABLET ONE (13:01)
[2016-12-11] MEDS ORDERED: diphenhydrAMINE CAP 50 MG CAPSULE PO ONE (13:18)
[2016-12-11] MEDS ORDERED: DIAZEPAM 5 MG TABLET PO ONE (13:19)
[2016-12-11] MEDS ORDERED: fentaNYL 100 MCG/2 ML VIAL ONE (13:38)
[2016-12-11] MEDS ORDERED: MIDAZOLAM 2 MG/2 ML VIAL ONE (13:38)
--- NOTE | 2016-12-11 13:48 | History and Physical Update ---
Sedation H&P Update - History and Physical H&P was reviewed, the patient examined and there: are no changes in the patients condition since last H&P was completed. - Physical Exam Mental Status: alert and oriented Heart: regular rate and rhythm Lung: clear to auscultation Abdomen: within normal limits Vitals: within normal limits - Sedation Plan for Sedation: moderate Patient Consent: Procedure disscussed with patient and patinet has consented., Risks and benefits were discussed with patient,including infection,, bleeding, injury to surrounding structures, seizure, temporary nerve, Patient understands and accepts potential risks/benefits and agrees to, proceed. ASA Class: III Airway Assessment: Class III: Soft palate, base of uvula visible
--- NOTE | 2016-12-11 14:08 | Cardiac Catheterization ---
Date of Procedure:: 12/11/16 Pre-op Diagnosis: Exertional dyspnea chest fullness with risk factors Post-op diagnosis: same Procedure: Procedures performed: Left heart catheterization Coronary arteriography Left ventriculography [Right] femoral sheath angiography Mynx closure femoral arteriotomy site After obtaining informed consent the patient was brought to the catheterization lab where the [right] groin was prepped and draped in the usual sterile manner. After intravenous sedation and local anesthesia a needle stick was made to the right femoral artery and a [6 Urdu sheath] was positioned without difficulty. A left heart catheterization was undertaken using first a Pratik left diagnostic catheter. The catheter was advanced under fluoroscopy over a guidewire and positioned with its tip in the ostium of the left main coronary artery. Multiple angiograms were obtained of the left coronary artery in multiple views. After adequate angiogram to left coronary obtain this catheter was withdrawn and an AMRM right coronary catheter was advanced over a guidewire under fluoroscopic control where angiography of the right coronary artery was undertaken in multiple views. After adequate angiograms of the right coronary artery were obtained this catheter was withdrawn. A pigtail ventriculographic catheter was advanced over a guidewire under fluoroscopic control to the ascending aorta where it was advanced across the aortic valve and intraventricular hemodynamics were measured. A ventriculogram was obtained in the TELLO projection and afterward a pullback was obtained from the ventricle to the aorta under hemodynamic monitoring and removed. At this point the patient underwent right femoral sheath angiography which demonstrated anatomy appropriate for Mynx closure. This was performed without difficulty and good hemostasis was obtained. The patient then was transferred back to the negron having suffered no significant immediate complications. Hemodynamics: Please see the accompanying data sheet Coronary arteriography: Left coronary artery: The left main coronary artery is well-developed and free of significant obstructing lesions. The circumflex coronary is a large nondominant vessel with possesses no significant lesions through its course. The branches of the circumflex likewise are free of significant obstructing lesions. The left anterior descending coronary artery is a large vessel that extends around the apex of the ventricle. The LAD possesses no significant lesions throughout its course. There is a proximal diagonal branch which is a large and free of significant obstructing lesions. The LAD at the bifurcation appears to have a 30-50% area stenosis. The LAD and its remaining branches are free of significant obstructing lesions. Right coronary artery: The right coronary artery is large vessel that is dominant and is free of significant obstructing lesions. The PDA and posterolateral branches likewise are free of significant obstructing lesions. Left ventriculography: After injection of contrast left ventricle is noted normal size with normal contractility. Mitral and aortic structures are noted to be free of significant abnormality by ventriculography. Right femoral sheath angiography: After injection of contrast in the right femoral arterial sheath it is noted be of normal caliber and enters above the bifurcation. The distal iliac, common femoral and bifurcation appear to be free of significant obstructing lesions based on this limited angiographic study. Conclusions: Angiographically no evidence of significant fixed coronary obstruction. Normal left ventricular size and function. Normal end-diastolic pressures at rest Mynx closure right femoral arteriotomy site Discussion recommendations the patient presents with chest discomfort. She has now undergone evaluation demonstrating no evidence of significant fixed coronary obstruction. She'll continue risk factor modification and our plan will be to evaluate for other etiologies of the patient's discomfort. Findings have been reviewed with the patient's family. Surgeon / Physician: Steve Suarez - Medications / Follow-up Referrals: Steve Suarez MD [Physician] - 2 Weeks
[2016-12-11] MEDS: sitaGLIPtin 25 MG TABLET PO SCH (17:23)
[2016-12-11 17:52] VITALS: BP 125/58
--- NOTE | 2016-12-11 18:07 | Discharge Summary ---
Hospital Course - Hospital Course Hospital Course: Patient came to the hospital with exertional dyspnea and chest fullness. She had multiple risk factors and it was felt ultimately a cath was warranted due to recurring symptoms. She did undergo this without difficulty. Angiographically there was no evidence of significant fixed coronary artery obstruction. She had normal left ventricular size and function with normal end- diastolic pressure. At this time she is not complaining of any chest pain. Will be discharged to home to follow-up with Dr. Suarez in 2 weeks and myself in 4 weeks. I did tell her to let me know if she had any further problems and her discharge medicines, and instructions were given to her. In addition she did have what was a mild urinary tract infection, strep atelectatic and we are going to continue her at home on ciprofloxacin for about 3 more days. Diagnosis - Discharge Diagnosis (1) Malignant hypertensive urgency Status: Acute (2) Angina at rest Status: Acute (3) Diabetes mellitus Status: Chronic (4) Hypertriglyceridemia without hypercholesterolemia Status: Chronic (5) Fatigue Status: Acute Specialty Discharge - Follow Up or Referrals Follow up with: Steve Suarez MD [Physician] - 2 Weeks (01/03/2017 12:50pm) Discharge Plan - Discharge Data Disposition: Disch To Home/Self Care Condition at Discharge: Stable Discharge Diet: advance to your usual diet Activity: resume usual activities as tolerated Hygiene: no restrictions Weight Bearing at Discharge: weight bear as tolerated Driving: no restrictions Contact your physician if you experience:: fever over 101, Shortness of breath - Discharge Medications [place] Cap/Tab [Neurontin Cap/Tab] 200 mg PO BID #120 capsule [place] 3 Acid Ethyl Esters [Lovaza] 1 gm PO BID #60 capsule amLODIPine [Norvasc] 5 mg PO DAILY #90 tablet Ciprofloxacin Tab [Cipro Tab] 500 mg PO Q12HR #7 tablet Continue Losartan [Cozaar] 50 mg PO BEDTIME Nebivolol [Bystolic] 10 mg PO BEDTIME Insulin Detemir [Levemir] 18 unit SUBCUT DAILY Aspirin [Ecotrin] 81 mg PO BEDTIME Sitagliptin Phos/Metformin HCl [Janumet 50-1,000 mg Tablet] 1 tablet PO DAILY W/SUPPER - Follow Up or Referral Follow Up: Steve Suarez MD [Physician] - 2 Weeks (01/03/2017 12:50pm) - Forms/Instructions Instructions: Angina (DC), Coronary Artery Disease (GEN), Left Heart Catheterization (DC), Heart Healthy Diet (GEN), Diabetes Mellitus Type 1 in Adults (DC), Chronic Hypertension (DC), Hypertensive Crisis (DC) Exam - Constitutional Vitals: Period Temp Pulse Resp BP Sys/[place]iner Pulse Ox Last 24 Hr 96.5 F-98.1 F 66-84 16-20 119-160/58-82 94-100 Discharge Results Procedures and tests throughout hospitalization: Pending Orders 12/11/16 07:39 CL heart Routine Labs on day of discharge: Labs from last 24 hours 12/11/16 12/11/16 12/11/16 15:57 11:46 07:52 WBC RBC Hgb Hct MCV MCH MCHC RDW Plt Count MPV Neut % (Auto) Lymph % (Auto) [place] % (Auto) Eos % (Auto) Baso % (Auto) Neut # (Auto) Lymph # (Auto) [place] # (Auto) Eos # (Auto) Baso # (Auto) Immature Gran % Nucleated RBC % Immature Gran # Nucleated RBCs # Sodium Potassium Chloride Carbon Dioxide Anion Gap BUN Creatinine GFR Calculation BUN/Creatinine Ratio Glucose POC Glucose 191 H 154 H 160 H Calculated Osmolality Calcium Magnesium 12/11/16 12/11/16 12/10/16 05:06 05:06 20:57 WBC 6.0 RBC 4.33 Hgb 12.4 Hct 36.0 MCV 83.1 L MCH 29 MCHC 34.4 RDW 13.9 Plt Count 153 MPV 10.2 Neut % (Auto) 57.9 Lymph % (Auto) 30.3 [place] % (Auto) 8.1 Eos % (Auto) 2.7 Baso % (Auto) 0.5 Neut # (Auto) 3.5 Lymph # (Auto) 1.8 [place] # (Auto) 0.5 Eos # (Auto) 0.2 Baso # (Auto) 0.0 Immature Gran % 0.5 Nucleated RBC % 0.0 Immature Gran # 0.03 Nucleated RBCs # 0.00 Sodium 139 Potassium 3.9 Chloride 106 Carbon Dioxide 24 Anion Gap 12.9 BUN 10 Creatinine 0.60 GFR Calculation 91 BUN/Creatinine Ratio 16.00 Glucose 160 H POC Glucose 206 H Calculated Osmolality 278.5 Calcium 8.5 Magnesium 2.4 DS: Provider Date of admission: 12/08/16 12:52 Primary care physician: . No PCP Attending physician on admission: Shiv Montoya DO Consults: 12/08/16 12:32 Consult to Case Mgmt/Social Srvs [CONS] Routine Reason for Case Mgmt/Social Srvs: Discharge Planning 12/08/16 12:35 Consult to Physician [CONS] Routine Comment: chest pain Consulting Provider: Steve Suarez Consult Notification Comment: Dr Suarez saw patient 12/11/16 14:08 Consult to Cardiac Rehabilitation [CONS] Routine Reason for Cardiac Rehabilitation: Risk Factor Modification Discharging clinician: Shiv Montoya DO
== END 2016-12-11 19:03 | disposition home or self-care (01) ==
LOC: N.TELES
PROVIDERS: ADMIT Family Medicine; ATTEND Family Medicine
PROC: CLCCHCL (ICD-10-PCS; 2016-12-11 14:45)